=== PATIENT | female | born 1995 | race Caucasian/White ===

== ENCOUNTER 2019-10-18 16:31 | Emergency (ER) | payer BC ==
[~2019-10-18] VITALS: Ht 152.4 cm; Wt 62.7 kg
[2019-10-18 18:55] LABS: COLLECTION METHOD CLEAN CATCH
[2019-10-18 19:05] LABS: BASO % 0.2 % (0.0-2.0); EOS # 0.1 (0.0-0.7); EOS % 0.8 % (0-4.0); GRAN # 7.8 (1.4-6.5); GRAN % 73.1 % (42.2-75.2); HEMATOCRIT 38.2 % (37.0-47.0); HEMOGLOBIN 13.1 g/dl (12.5-16.0); LYMPH # 1.8 (1.2-3.4); LYMPH % 17.1 % (20.0-51.0); MEAN CELL VOLUME 89 fl (80.0-100.0); MEAN CORPUSCULAR HEMOGLOBIN 31 pg (27.0-31.0); MEAN CORPUSCULAR HGB CONC 34 g/dl (33.0-37.0); MEAN PLATELET VOLUME 10.5 fl (7.4-10.4); MONO # 0.9 (0.1-0.6); MONO % 8.2 % (1.7-9.3); PLATELET COUNT 250 K/mm3 (130-400); RED BLOOD COUNT 4.28 M/mm3 (4.10-5.30); REDCELL DISTRIBUTION WIDTH-CV 12.6 % (11.5-14.5)
[2019-10-18 19:08] LABS: MUCOUS Present /lpf; PH 6 (5-8); SQUAMOUS EPITHELIAL 0-2 /hpf; URINE APPEARANCE Clear; URINE BACTERIA None Seen /hpf; URINE BILIRUBIN Negative (NEGATIVE); URINE BLOOD Negative (NEGATIVE); URINE COLOR Straw; URINE GLUCOSE 3+ (NEGATIVE); URINE KETONE Negative (NEGATIVE); URINE LEUKOCYTE ESTERASE 1+ (NEGATIVE); URINE NITRATE Negative (NEGATIVE); URINE PROTEIN(semi-quant) Negative (NEGATIVE); URINE RBC 0-2 /hpf; URINE UROBILINOGEN Negative (NEGATIVE)
--- NOTE | 2019-10-18 19:11 | NUR ---
Pt seen in ED for elevated blood sugar in OB office. [address]wks pt of Dr. Ellison. Pt denies any contractions, leaking of fluid or vaginal bleeding and reports normal movement. EFM and toco monitors started. Audible movement. Occasional contractions noted with toco monitors but pt reports no contractions felt. See charting for details.
[2019-10-18 19:14] LABS: ALANINE AMINOTRANSFERASE < 6 U/L (9-52); ALBUMIN 4.1 gm/dL (3.5-5.0); ALKALINE PHOSPHATASE 92 U/L (50-136); ANION GAP 11 mmol/L (7-16); AST,SGOT 13 U/L (15-37); BILIRUBIN,TOTAL 0.2 mg/dL (0.0-1.0); BLOOD UREA NITROGEN 15 mg/dL (7-17); CALCIUM 9.8 mg/dL (8.4-10.2); CARBON DIOXIDE 23 mmol/L (22-30); CHLORIDE 103 mmol/L (98-107); CREATININE, serum 0.56 (0.52-1.25); GLUCOSE 291 mg/dL (74-106); POTASSIUM 4.1 mmol/L (3.4-5.0); SODIUM 136 mmol/L (137-145); TOTAL PROTEIN 7.8 gm/dL (6.4-8.2)
[2019-10-18 19:21] LABS: ACETONE,SERUM NEGATIVE
[2019-10-18] MEDS ORDERED: GLUCOSE TEST ST1 DEV MC (19:59)
[2019-10-18] MEDS ORDERED: LEVEMIR FLEX100 U/ML SQ (19:59)
[2019-10-18] MEDS ORDERED: LANCETS MC (19:59)
[2019-10-18] MEDS ORDERED: FREESTYLE PREC1 EAC5 MC ×2 (19:59→20:00)
[2019-10-18 20:22] VITALS: BP 104/73; PULSE 88; TEMP 98.7
== END 2019-10-18 20:35 | disposition home or self-care (01) ==
LOC: COL.ER 16:31
PROVIDERS: Emergency Medicine
DX: O24.419 Gestational diabetes mellitus in pregnancy, unspecified control (principal); Z3A.28 28 weeks gestation of pregnancy
CPT/HCPCS: J1815; J7030

== ENCOUNTER → 2019-10-19 | Outpatient (CLI) | payer BC ==
[~2019-10-19] VITALS: Ht 152.4 cm; Wt 62.7 kg
[~2019-10-19] MED LIST: FREESTYLE PREC1 EAC5 MC; GLUCOSE TEST ST1 DEV MC; LANCETS MC; LEVEMIR FLEX100 U/ML SQ
[2019-10-19 21:34] VITALS: TEMP 97.9
[2019-10-19 21:56] VITALS: BP 119/78; PULSE 68
== END ==
LOC: COL.ER 21:27
DX: R73.02 Impaired glucose tolerance (oral) (principal)
CPT/HCPCS: J1815

== ENCOUNTER 2019-11-13 16:45 | Outpatient (CLI) | payer BC, OTHER ==
[~2019-11-13] VITALS: Ht 152.4 cm; Wt 65.3 kg
[~2019-11-13 16:45] MED LIST changes: -NOVLOG SQ; -PERCOCET 325 MG1 TA2 PO
[2019-11-13] MEDS ORDERED: NOVLOG SQ (17:00)
--- NOTE | 2019-11-13 17:14 | NUR ---
1650 PATIENT HERE FOR A NONSTRESS TEST PER DR ROSA. ASSESSMENT COMPLETED. EFM ON FHT 140 BABY ACTIVE. REACTIVE STRIP NOTED. DR NIELSON REVIEWED STRIP AN DORDRS TO DISMISS TO HOME
== END 2019-11-13 17:24 | disposition home or self-care (01) ==
LOC: LDRO 16:45
DX: Z36.83 Encounter for fetal screening for congenital cardiac abnormalities (principal); Z3A.34 34 weeks gestation of pregnancy

== ENCOUNTER → 2019-11-13 | Outpatient (CLI) | payer BC, OTHER ==
[~2019-11-13] MED LIST changes: +NOVLOG SQ; +PERCOCET 325 MG1 TA2 PO
== END ==
LOC: DIA.ED 13:39
DX: O24.419 Gestational diabetes mellitus in pregnancy, unspecified control (principal); Z79.4 Long term (current) use of insulin
CPT/HCPCS: G0108

== ENCOUNTER 2019-12-03 02:04 | Outpatient (CLI) | payer BC ==
[~2019-12-03] VITALS: Ht 152.4 cm; Wt 68.6 kg
[~2019-12-03 02:04] MED LIST changes: +NOVLOG SQ
--- NOTE | 2019-12-03 02:10 | NUR ---
PT HERE WITH SPOUSE. IS CURRENTLY COLLECTING A 24HR UA DUE TO PREECLAMPSIA, IDGDM.G1 35.3 WKS. RYAN HAD SEVERAL EPISODES OF LIGHT APPEARING ALL ORANGE WHEN SHE WOULD AWAKEN.VISION IS NORMAL NOW PT STATES. DENIES PAIN, N/V OR HEADACHE AT THIS TIME. HAS URINTED ONCE- COLLECTED TO ADD TO HER CONTAINER FOR TESTING. SERIAL BPS DONE. ACCUCHECK 98
[2019-12-03 02:21] VITALS: BP 132/77; PULSE 92; TEMP 98.1
[2019-12-03 02:33] VITALS: BP 132/77; PULSE 92; TEMP 98.1
[2019-12-03 02:40] VITALS: BP 110/64; PULSE 84
[2019-12-03 02:50] VITALS: BP 114/67; PULSE 82
--- NOTE | 2019-12-03 03:30 | NUR ---
discharge instr reviewed with pt and spouse . verbalizes understanding- questions addressed
== END 2019-12-03 03:43 | disposition home or self-care (01) ==
LOC: LDRO 02:04
DX: O13.3 Gestational [pregnancy-induced] hypertension without significant proteinuria, third trimester (principal); Z3A.35 35 weeks gestation of pregnancy

== ENCOUNTER 2019-12-04 05:12 | Outpatient (CLI) | payer BC ==
[~2019-12-04] VITALS: Ht 152.4 cm; Wt 147.0 kg
[2019-12-04 05:30] VITALS: BP 130/87; PULSE 88; TEMP 97.6
--- NOTE | 2019-12-04 05:30 | NUR ---
0505- Patient to LR4 by wheelchair with . Patient into restroom to change into clean gown. 0515- Patient helped in to bed with help of x2. 0520- EFM and TOCO on and tracing. Patient has complaints of LLQ pain that she describes as "sharp and shooting" and points to her lower left abdomen. The patient's reports the pain is often in her hip and pelvis on the left side. Patient denies bleeding, spotting, or contractions. Patient has been seen at [facility] and L&D the past 2 days. 0535- See Physician Notification. 0540- See Physician Notification.
--- NOTE | 2019-12-04 06:15 | NUR ---
Report received from Ayesha SPENCE. Patient resting in bed, stating she is still have some pain but not feeling contractions. 0655: SVE attempted and patient does not tolerate well. Unable to perform SVE. 0711: called and notified and discharge orders given. 0719: Patient off monitors and discharge instructions gone over. Patient and spouse verbalize understanding. Questions answered. 0745: Patient off unit via wheelchair with spouse.
[2019-12-04 06:20] LABS: COLLECTION METHOD CLEAN CATCH
[2019-12-04 06:29] LABS: MUCOUS Present /lpf; PH 5 (5-8); URINE APPEARANCE Clear; URINE BACTERIA None Seen /hpf; URINE BILIRUBIN Negative (NEGATIVE); URINE BLOOD Negative (NEGATIVE); URINE COLOR Yellow; URINE GLUCOSE Negative (NEGATIVE); URINE KETONE Negative (NEGATIVE); URINE LEUKOCYTE ESTERASE Negative (NEGATIVE); URINE NITRATE Negative (NEGATIVE); URINE PROTEIN(semi-quant) 2+ (NEGATIVE); URINE RBC 0-2 /hpf; URINE UROBILINOGEN Negative (NEGATIVE); URINE WBC 0-2 /hpf
[2019-12-04 07:20] VITALS: BP 136/93; PULSE 93; TEMP 98.1
== END 2019-12-04 07:45 | disposition home or self-care (01) ==
LOC: LDRO 05:12 → LDR 05:15 → LDRO 07:45
PROVIDERS: Student in an Organized Health Care Education/Training Program
DX: O26.893 Other specified pregnancy related conditions, third trimester (principal); Z3A.35 35 weeks gestation of pregnancy
CPT/HCPCS: OP

== ENCOUNTER 2019-12-10 12:24 | Inpatient (IN) | payer BC ==
[2019-12-10] VITALS (10 sets, daily range): BP systolic 119–141; BP diastolic 64–80; PULSE 74–93; TEMP 98.1
[~2019-12-10] VITALS: Ht 152.4 cm; Wt 66.8 kg
--- NOTE | 2019-12-10 19:10 | NUR ---
G1 at 36 weeks and 2 days arrives to unit for scheduled induction of labor. Pt oriented to room, bed in low and locked position, call light within reach. Clean gown on. US and toco explained and applied. Pt reports feeling good movement, denies contractions, denies LOF and denies vaginal bleeding. Pt reports having a headache earlier today but it went away. Denies changes in vision, or RUQ pain. Does have some mild lower edema swelling. Pt has gestational diabetes and reports blood sugars today have all been below 100 and she last took novolog in the morning with breakfast. Vital signs obtained. Admission assessment started. SVE /-3, membranes intact. Dr. Ellison notified for further orders, see physician notification.
--- NOTE | 2019-12-10 19:52 | NUR ---
20 G IV started in left wrist. Admission labs obtained off IV start.
--- NOTE | 2019-12-10 20:10 | NUR ---
Category 1 FHR tracing obtained. Pt up to bathroom to void. 50 mcg cytotec given PO once back in bed.
[2019-12-10 20:39] LABS: BASO % 0.3 % (0.0-2.0); EOS # 0.1 (0.0-0.7); GRAN % 67.2 % (42.2-75.2); HEMOGLOBIN 11.8 g/dl (12.5-16.0); LYMPH # 2.5 (1.2-3.4); MEAN CELL VOLUME 88 fl (80.0-100.0); MEAN CORPUSCULAR HEMOGLOBIN 30 pg (27.0-31.0); MEAN CORPUSCULAR HGB CONC 34 g/dl (33.0-37.0); MEAN PLATELET VOLUME 11.7 fl (7.4-10.4); MONO # 0.7 (0.1-0.6); MONO % 7.1 % (1.7-9.3); PLATELET COUNT 261 K/mm3 (130-400); RED BLOOD COUNT 3.98 M/mm3 (4.10-5.30); REDCELL DISTRIBUTION WIDTH-CV 12.5 % (11.5-14.5)
[2019-12-10 20:41] LABS: HEMATOCRIT 34.9 % (37.0-47.0)
[2019-12-10 20:43] LABS: ALBUMIN 3.4 gm/dL (3.5-5.0); BILIRUBIN,TOTAL 0.3 mg/dL (0.0-1.0); CALCIUM 9.7 mg/dL (8.4-10.2); CREATININE, serum 0.69 (0.52-1.25); POTASSIUM 3.7 mmol/L (3.4-5.0)
--- NOTE | 2019-12-10 20:50 | NUR ---
Pt checked blood sugar with own glucometer. Blood Sugar 164. Pt to give 10 units of patient supplied levemir per Dr. Ellison, see MAR.
--- NOTE | 2019-12-10 21:00 | NUR ---
Pt complaining of IV site hurting and not infusing well. New IV started in right wrist.
[2019-12-11] VITALS (84 sets, daily range): BP systolic 113–158; BP diastolic 58–92; PULSE 67–125; TEMP 97.3–98.3
--- NOTE | 2019-12-11 04:45 | NUR ---
Pt wanting to get up to shower. Category 1 FHR tracing obtained. Monitors removed, plan of care updated.
--- NOTE | 2019-12-11 05:55 | NUR ---
Category 1 FHR tracing obtained. Pitocin initiated at 2 mL/min per protocol. Pt reports only feeling mild cramping.
--- NOTE | 2019-12-11 07:00 | NUR ---
Assumed care of patient. Ambulates to the bathroom and back. Denies any discomfort or pain at this time. Spouse at bedside.
--- NOTE | 2019-12-11 07:15 | NUR ---
Blood sugar 75
--- NOTE | 2019-12-11 08:15 | NUR ---
Ambulates to the bathroom and back. Denies any pain at this time.
--- NOTE | 2019-12-11 08:30 | NUR ---
Blood sugar 83
--- NOTE | 2019-12-11 09:15 | NUR ---
Request epidural. Anesthesia notified. 09 Anesthesia here, visits with patient. 09 Local given by morgan landonngreer 0938 Straight shot given by anesthesia. 0939 Test dose given by anesthesia.
--- NOTE | 2019-12-11 09:45 | NUR ---
Lies down after epidural. Denies any needs at this time.
--- NOTE | 2019-12-11 10:00 | NUR ---
Blood sugar 98.
--- NOTE | 2019-12-11 10:50 | NUR ---
Blood sugar 79.
--- NOTE | 2019-12-11 11:30 | NUR ---
Rests in bed, alert. Denies any needs at this time.
--- NOTE | 2019-12-11 11:45 | NUR ---
Blood sugar 76.
--- NOTE | 2019-12-11 12:55 | NUR ---
Blood sugar 60
--- NOTE | 2019-12-11 13:00 | NUR ---
Rests in bed, alert. Blood sugar 60, reported by spouse. Dr. Ellison called and updated with blood sugar 60. New orders to given orange juice. and recheck in an hour. [place] juice given.
--- NOTE | 2019-12-11 13:46 | NUR ---
Blood sugar 89
--- NOTE | 2019-12-11 14:07 | NUR ---
Report given from Veronique Mahan RN to this nurse as baby becomes level 2.
--- NOTE | 2019-12-11 14:30 | NUR ---
Rests in bed, alert. Repositioned in bed, curtis-care given.
--- NOTE | 2019-12-11 14:50 | NUR ---
Blood sugar 85.
--- NOTE | 2019-12-11 15:45 | NUR ---
Blood sugar 69, orange juice given.
--- NOTE | 2019-12-11 16:30 | NUR ---
Rests in bed, alert. Repositioned to left side. Lisette-care given.
--- NOTE | 2019-12-11 16:45 | NUR ---
Blood sugar 105.
--- NOTE | 2019-12-11 17:00 | NUR ---
1710 Dr. Ellison here, sve done, reports dilated to eight, 100% effaced, minus one. New orders to change fluids of normal saline to lactated ringers.
--- NOTE | 2019-12-11 17:45 | NUR ---
Spouse came out to desk and reports Oscar is feeling pressure. Dr. Ellison went in and did vag exam. Reports still an eight, but zero station.
--- NOTE | 2019-12-11 21:15 | NUR ---
PT COMPLETE/0-+1, PLACED IN LEFT LATERAL WITH RIGHT LEG IN STIRRUP TO LABOR DOWN.
--- NOTE | 2019-12-11 23:38 | NUR ---
PT BEGINS PUSHING WITH THIS NURSE.
[2019-12-12] VITALS (31 sets, daily range): BP systolic 103–153; BP diastolic 53–91; PULSE 63–151; TEMP 97.9–98.5
--- NOTE | 2019-12-12 02:09 | NUR ---
PT TO SEMIFOWLERS POSITION AT 0200, SQUAT BAR IN PLACE WITH SHEET, PT INSTRUCTED ON HOW TO PUSH USING SQUAT BAR AND SHEET "TUG OF WAR". ATTEMPTING PUSHING THIS WAY FOR 4 CONTRACTIONS BUT PT DIDN'T TOLERATE WELL. SQUAT BAR AND SHEET DC'D. PT CONTINUES PUSHING IN SEMIFOWLERS.
--- NOTE | 2019-12-12 02:56 | NUR ---
0232- DR. ROSA IN ROOM TO EVALUATE AFTER 3 HOURS OF PUSHING. MINIMAL CHANGE IN STATION OF THE LAST [address] ROSA STATES CONCERN OF SIZE AND INSUFFICIENT PELVIS, C/S RECOMMENDED. PT AND SPOUSE VERBALIZED UNDERSTANDING AND AGREE TO C/S 0237- C/S CALLED. NSY, ANESTHESIA, CONTINUING EDUCATION DEAN, AND CHARGE NOTIFIED. 0240- PITOCIN OFF PER DR. ROSA. 0245- MONS PUBIS CLIPPED, SCRUB PERFORMED. 0256- CASTRO EMPTIED, 850MLS OUT. PT OFF MONITORS, TO OR VIA BED FOR C/S FOR ARREST OF DESCENT.
--- NOTE | 2019-12-12 04:45 | NUR ---
BLOOD SUGAR CHECKED IN PACU AT THIS TIME. BS OF 156. DR. ROSA NOTIFIED AT 0450. CHANGE LR WITH PITOCIN TO NS WITH 30MCG OF PITOCIN. CHECK ANOTHER BLOOD SUGAR IN 2 HOURS, NOTIFY IF LESS THAN 60 OR GREATER THAN 150.
--- NOTE | 2019-12-12 04:55 | NUR ---
PT MOVED FROM PACU TO . RECOVERY VS SET ON DYNAMAP, PERICARE PROVIDED, ICEPACK TO PERINEUM FOR SWELLING DUE TO 3 HOURS OF PUSHING. ABDOMINAL BINDER IN PLACE. PT DENIES PAIN AT THIS TIME.
--- NOTE | 2019-12-12 05:55 | NUR ---
0555-O2 INCREASED TO 2L PER NASAL CANULA AT 40% FIO2 PER DR CHAUDHARI ORDER. O2 SATS INCREASED FROM 90% TO 93% AT THIS TIME. MODERATE GRUNTING, NASAL FLARING AND RETRACTIONS CONTINUE.
--- NOTE | 2019-12-12 08:10 | NUR ---
Dr. Melton on unit. Reviewed patient history and assessment, vital signs, and glucose levels. Orders to continue sliding scale orders per Dr. Ellison. Routine care.
--- NOTE | 2019-12-12 11:05 | NUR ---
Patient educated on pumping for in NICU. Patient denies questions at this time, begins pumping.
--- NOTE | 2019-12-12 19:00 | NUR ---
BLOOD SUGAR 1 HOUR POSTPRANDIAL OF 183.
--- NOTE | 2019-12-12 21:45 | NUR ---
BLOOD SUGAR OF 119.
[2019-12-13 01:09] VITALS: BP 119/70; PULSE 65; TEMP 98.7
[2019-12-13 06:50] LABS: BASO % 0.2 % (0.0-2.0); EOS # 0.1 (0.0-0.7); EOS % 0.7 % (0-4.0); GRAN # 11.7 (1.4-6.5); LYMPH # 3.1 (1.2-3.4); LYMPH % 19.4 % (20.0-51.0); MEAN CELL VOLUME 89 fl (80.0-100.0); MEAN CORPUSCULAR HGB CONC 33 g/dl (33.0-37.0); MEAN PLATELET VOLUME 10.8 fl (7.4-10.4); MONO # 1.2 (0.1-0.6); MONO % 7.1 % (1.7-9.3); PLATELET COUNT 211 K/mm3 (130-400); RED BLOOD COUNT 3.24 M/mm3 (4.10-5.30); REDCELL DISTRIBUTION WIDTH-CV 12.8 % (11.5-14.5)
[2019-12-13 06:56] LABS: HEMATOCRIT 28.8 % (37.0-47.0); MEAN CORPUSCULAR HEMOGLOBIN 30 pg (27.0-31.0)
[2019-12-13 06:57] LABS: ALBUMIN 2.6 gm/dL (3.5-5.0); BILIRUBIN,TOTAL 0.2 mg/dL (0.0-1.0); CALCIUM 9.2 mg/dL (8.4-10.2); CREATININE, serum 0.82 (0.52-1.25); HEMOGLOBIN 9.6 g/dl (12.5-16.0); POTASSIUM 3.8 mmol/L (3.4-5.0); TOTAL PROTEIN 5.6 gm/dL (6.4-8.2)
[2019-12-13 07:00] VITALS: BP 138/82; PULSE 80; TEMP 97.2
--- NOTE | 2019-12-13 09:30 | NUR ---
Patient ambulated with shaking gait to bathroom with assist x1. Catheter discontinued per order. Lisette care provided. Ambulated back to bed and assisted into bed. Updated on plan of care and safety. SCD's back on BLE.
[2019-12-13 11:06] VITALS: BP 115/61; PULSE 81; TEMP 97.8
--- NOTE | 2019-12-13 11:06 | NUR ---
Initial visit attempt; Patient resting, Dry Janitor left card of congratulations and information regarding the availability of spiritual care at our hospital.
[2019-12-13 16:30] VITALS: BP 128/76; PULSE 92; TEMP 97.9
[2019-12-13 20:30] VITALS: BP 141/64; PULSE 82; TEMP 98
[2019-12-14] MEDS ORDERED: PERCOCET 325 MG1 TA2 PO (05:30)
[2019-12-14 09:30] VITALS: BP 126/62; PULSE 89; TEMP 97.6
--- NOTE | 2019-12-14 09:40 | NUR ---
1 HOUR PP BLOOD GLUCOSE 118 WITH PATIENT'S OWN GLUCOMETER.
--- NOTE | 2019-12-14 15:00 | NUR ---
Discharge instructions reviewed. Questions answered. Patient to POV via wheelchair. Discharged home.
== END 2019-12-14 15:00 | disposition home or self-care (01) | DRG 788 ==
LOC: OB 12:24 → LDR 18:54 → OB 12-12 07:37
PROVIDERS: ADMIT Obstetrics & Gynecology
PROC: 10D00Z1 Extraction of Products of Conception, Low, Open Approach (ICD-10-PCS; principal; 2019-12-12)
PROC: 10907ZC Drainage of Amniotic Fluid, Therapeutic from Products of Conception, Via Natural or Artificial Opening (ICD-10-PCS; 2019-12-12)
PROC: 3E0P7GC Introduction of Other Therapeutic Substance into Female Reproductive, Via Natural or Artificial Opening (ICD-10-PCS; 2019-12-12)
DX: O14.13 Severe pre-eclampsia, third trimester (principal); O24.425 Gestational diabetes mellitus in childbirth, controlled by oral hypoglycemic drugs; O62.0 Primary inadequate contractions; Z3A.36 36 weeks gestation of pregnancy; Z37.0 Single live birth
CPT/HCPCS: J0171; J0690; J1100; J1815; J1885; J2405; J2590; J3010; J7030; J7120

== ENCOUNTER 2019-12-19 18:23 | Emergency (ER) | payer BC, OTHER ==
[~2019-12-19] VITALS: Ht 152.4 cm; Wt 63.6 kg
[~2019-12-19 18:23] MED LIST changes: +PERCOCET 325 MG1 TA2 PO
[2019-12-19 18:36] VITALS: BP 153/77; TEMP 98.3
[2019-12-19 19:45] LABS: BASO % 0.4 % (0.0-2.0); EOS # 0.2 (0.0-0.7); EOS % 1.9 % (0-4.0); GRAN # 7.2 (1.4-6.5); GRAN % 66.1 % (42.2-75.2); HEMOGLOBIN 10.9 g/dl (12.5-16.0); LYMPH # 2.5 (1.2-3.4); LYMPH % 23.2 % (20.0-51.0); MEAN CELL VOLUME 93 fl (80.0-100.0); MEAN CORPUSCULAR HEMOGLOBIN 29 pg (27.0-31.0); MEAN CORPUSCULAR HGB CONC 32 g/dl (33.0-37.0); MEAN PLATELET VOLUME 9.4 fl (7.4-10.4); MONO # 0.8 (0.1-0.6); PLATELET COUNT 387 K/mm3 (130-400); RED BLOOD COUNT 3.73 M/mm3 (4.10-5.30); REDCELL DISTRIBUTION WIDTH-CV 13.7 % (11.5-14.5)
[2019-12-19 19:47] LABS: HEMATOCRIT 34.6 % (37.0-47.0)
[2019-12-19 19:54] LABS: ALANINE AMINOTRANSFERASE 43 U/L (9-52); ALBUMIN 3.6 gm/dL (3.5-5.0); ALKALINE PHOSPHATASE 217 U/L (50-136); ANION GAP 7 mmol/L (7-16); AST,SGOT 33 U/L (15-37); BILIRUBIN,TOTAL 0.3 mg/dL (0.0-1.0); BLOOD UREA NITROGEN 21 mg/dL (7-17); CALCIUM 9.3 mg/dL (8.4-10.2); CARBON DIOXIDE 26 mmol/L (22-30); CHLORIDE 107 mmol/L (98-107); GLUCOSE 119 mg/dL (74-106); SODIUM 140 mmol/L (137-145); TOTAL PROTEIN 7.2 gm/dL (6.4-8.2)
[2019-12-19 20:06] LABS: TROPONIN-I < 0.012 ng/mL (0.000-0.035)
[2019-12-19 20:36] LABS: COLLECTION METHOD CLEAN CATCH
[2019-12-19 20:43] LABS: PH 7 (5-8); SQUAMOUS EPITHELIAL 0-2 /hpf; URINE APPEARANCE Hazy; URINE BACTERIA Rare /hpf; URINE BILIRUBIN Negative (NEGATIVE); URINE BLOOD 3+ (NEGATIVE); URINE COLOR Yellow; URINE GLUCOSE Negative (NEGATIVE); URINE KETONE Negative (NEGATIVE); URINE LEUKOCYTE ESTERASE Trace (NEGATIVE); URINE NITRATE Negative (NEGATIVE); URINE PROTEIN(semi-quant) 1+ (NEGATIVE); URINE RBC >50 /hpf; URINE UROBILINOGEN Negative (NEGATIVE)
[2019-12-19 22:50] VITALS: PULSE 82
== END 2019-12-19 22:55 | disposition home or self-care (01) ==
LOC: COL.ER 18:23
PROVIDERS: Physician Assistant
DX: R06.2 Wheezing (principal)
CPT/HCPCS: Q9967

== ENCOUNTER → 2020-04-07 | Outpatient (CLI) | payer BC | LOC: ZCOL.LAB 10:17 | DX: Z20.828 Contact with and (suspected) exposure to other viral communicable diseases (principal) ==

== ENCOUNTER → 2020-08-19 | Outpatient (CLI) | payer BC | LOC: ZCOL.LAB 12:16 → COL.LAB 12:25 | DX: Z20.828 Contact with and (suspected) exposure to other viral communicable diseases (principal) ==

== ENCOUNTER → 2021-04-15 | Outpatient (CLI) | payer BC | LOC: COL.RAD 07:26 | DX: R10.11 Right upper quadrant pain (principal) ==

== ENCOUNTER 2022-08-25 12:22 | Inpatient (IN) | payer BC, OTHER ==
[~2022-08-25] VITALS: Ht 152.5 cm; Wt 63.6 kg
[2022-08-26] VITALS (18 sets, daily range): BP systolic 97–135; BP diastolic 56–90; PULSE 57–133; TEMP 97.9–98.6
[2022-08-26] MEDS ORDERED: PRENATAL 19 CH1 EACH PO (06:27)
[2022-08-26 06:36] LABS: BASO % 0.3 % (0.0-2.0); EOS # 0.2 K/mm3 (0.0-0.7); EOS % 2.1 % (0.0-4.0); GRAN # 8.1 K/mm3 (1.4-6.5); GRAN % 70.2 % (42.2-75.2); LYMPH % 17.6 % (20.0-51.0); MEAN CELL VOLUME 90 fl (80.0-100.0); MEAN CORPUSCULAR HEMOGLOBIN 29 pg (27-31); MEAN CORPUSCULAR HGB CONC 33 g/dl (33.0-37.0); MEAN PLATELET VOLUME 11.3 fl (7.4-10.4); MONO % 8.8 % (1.7-9.3); PLATELET COUNT 229 K/mm3 (130-400); RED BLOOD COUNT 4.08 M/mm3 (4.10-5.30); REDCELL DISTRIBUTION WIDTH-CV 12.3 % (11.5-14.5)
[2022-08-26 06:38] LABS: HEMATOCRIT 36.5 % (37.0-47.0)
--- NOTE | 2022-08-26 10:11 | NUR ---
Initial visit attempt; Patient had just given and was not in her room. Flatwork Finisher left card of congratulations for the of her son and God's blessings to him and all of his family.
--- NOTE | 2022-08-26 20:30 | NUR ---
2000 - PT BLOOD SUGAR FOUND TO BE 217 PRIOR TO EATING DINNER. 2009 - SPOKE WITH MD LASHONDA (SEE PHYSICIAN NOTIFICATION) 2029 - PT TOOK HER OWN 8UNITS OF NOVOLOG AT THIS TIME PER MD LASHONDA ORDER.
[2022-08-27 00:30] VITALS: BP 120/72; PULSE 84; TEMP 98.1
[2022-08-27 07:30] VITALS: BP 137/74; PULSE 92; TEMP 97.8
--- NOTE | 2022-08-27 09:02 | NUR ---
0720 IBUPROFEN AND STOOL SOFTENER CRUSHED AND GIVEN TO PATIENT WITH CUP OF APPLESAUCE. PT TOLERATED PO INTAKE WELL. 0730 PT REPORTS BLOOD SUGAR ON PT MONITOR WAS 69. DR. GREENE NOTIFIED. PT ORDERED BREAKFAST AT THIS TIME. 0800 DR. GREENE ORDERS TO CONTINUE 2 HOUR POSTPRANDIAL CHECKS, TO NOTIFY HER IF OVER 200.
--- NOTE | 2022-08-27 12:07 | NUR ---
1132 DR. GREENE CALLS FOR UPDATE ON 2 HR PP. PT REPORTS HASN'T BEEN 2 HOURS YET TO RECHECK. 1153 2 HR PP BLOOD SUGAR 117. 1157 DR. GREENE NOTIFIED. ORDERS TO CONTINUE 8 UNITS OF NPH AT 2100. CALL FOR BLOOD SUGARS OVER 140.
--- NOTE | 2022-08-27 16:30 | NUR ---
PT SHOWERED AND REMOVED BANDAGE WITH ASSISTANCE FROM RN. INCISION WELL APPROXIMATED WITH NO DRANIAGE NOTED. PT AMBULATED TO BED WITH ASSISTANCE BY RN. PT RESTING IN BED AND STABLE AT THIS TIME.
[2022-08-27 16:47] VITALS: BP 132/65; PULSE 88; TEMP 98
[2022-08-28 00:15] VITALS: BP 125/67; PULSE 83; TEMP 98.1
[2022-08-28 08:55] VITALS: BP 114/64; PULSE 87; TEMP 97.1
[2022-08-28] MEDS ORDERED: IBU800 M1 PO (11:20)
[2022-08-28] MEDS ORDERED: PERCOCET 325 MG1 TA2 PO (11:20)
--- NOTE | 2022-08-28 12:37 | NUR ---
Hot Mill Operator rounds: Patient and family were preparing to leave the hospital. Accepted a baby blessing. Hot Mill Operator provided a blessing for Baby Faye.
--- NOTE | 2022-08-28 12:59 | NUR ---
DISCHARGE INSTRUCTIONS EXPLAINED TO PT BY RN. PT VERBALIZED UNDERSTANDING. PT DISCHARGE HOME IN STABLE CONDITION ACCOMPANIED BY SPOUSE AND TECH. PT LEFT UNIT WITH NO COMPLAINTS.
== END 2022-08-28 12:53 | disposition home or self-care (01) | DRG 788 ==
LOC: OB 12:22
PROVIDERS: ADMIT Student in an Organized Health Care Education/Training Program
PROC: 10D00Z1 Extraction of Products of Conception, Low, Open Approach (ICD-10-PCS; principal; 2022-08-26)
DX: O34.211 Maternal care for low transverse scar from previous cesarean delivery (principal); Z3A.37 37 weeks gestation of pregnancy; Z37.0 Single live birth; O14.04 Mild to moderate pre-eclampsia, complicating childbirth; O24.424 Gestational diabetes mellitus in childbirth, insulin controlled; O69.81X0 Labor and delivery complicated by cord around neck, without compression, not applicable or unspecified; O99.62 Diseases of the digestive system complicating childbirth; K66.0 Peritoneal adhesions (postprocedural) (postinfection); Z23 Encounter for immunization
CPT/HCPCS: J0690; J1100; J1815; J1885; J2405; J2590; J2765; J7030

== ENCOUNTER 2023-10-16 15:11 | Emergency (ER) | payer SELFPAY ==
[~2023-10-16] VITALS: Ht 152.4 cm; Wt 52.3 kg
[~2023-10-16 15:11] MED LIST changes: +IBU800 M1 PO; +PRENATAL 19 CH1 EACH PO
[2023-10-16 15:20] VITALS: TEMP 98
[2023-10-16 15:41] LABS: COLLECTION METHOD CLEAN CATCH
[2023-10-16 15:50] LABS: PH 5.5 (5.0-8.5); URINE APPEARANCE Clear (CLEAR/HAZY); URINE BLOOD Negative (NEGATIVE); URINE COLOR Straw (YELLOW); URINE GLUCOSE Negative (NEGATIVE); URINE KETONE Negative (NEGATIVE); URINE NITRATE Negative (NEGATIVE); URINE PROTEIN(semi-quant) Negative (NEGATIVE); URINE UROBILINOGEN 0.2 E.U/dL (0.2-1.0)
[2023-10-16 16:02] LABS: URINE BACTERIA None Seen /hpf (NONE SEEN); URINE RBC 0-2 /hpf (0-2)
[2023-10-16 16:18] LABS: BASO % 0.3 % (0.0-2.0); EOS # 0.1 K/mm3 (0.0-0.7); EOS % 1.1 % (0.0-4.0); GRAN # 9.1 K/mm3 (1.4-6.5); GRAN % 76.8 % (42.2-75.2); HEMATOCRIT 45.3 % (37.0-47.0); HEMOGLOBIN 15.2 g/dl (12.5-16.0); LYMPH # 1.9 K/mm3 (1.2-3.4); LYMPH % 16.2 % (20.0-51.0); MEAN CELL VOLUME 86 fl (80.0-100.0); MEAN CORPUSCULAR HEMOGLOBIN 29 pg (27-31); MEAN CORPUSCULAR HGB CONC 34 g/dl (33.0-37.0); MEAN PLATELET VOLUME 10.1 fl (7.4-10.4); MONO # 0.6 K/mm3 (0.1-0.6); MONO % 5.3 % (1.7-9.3); PLATELET COUNT 265 K/mm3 (130-400); RED BLOOD COUNT 5.25 M/mm3 (4.10-5.30); REDCELL DISTRIBUTION WIDTH-CV 12.9 % (11.5-14.5)
[2023-10-16 16:38] LABS: ALBUMIN 4.5 gm/dL (3.5-5.0); BILIRUBIN,TOTAL 0.5 mg/dL (0.2-1.2); CALCIUM 10.3 mg/dL (8.4-10.2); CREATININE, serum 0.79 mg/dL (0.57-1.11); POTASSIUM 3.6 mmol/L (3.5-4.5); TOTAL PROTEIN 8.1 gm/dL (6.2-8.1)
[2023-10-16 18:16] VITALS: BP 128/78; PULSE 88
== END 2023-10-16 18:20 | disposition home or self-care (01) ==
LOC: COL.ER 15:11
PROVIDERS: Nurse Practitioner Family
DX: K59.00 Constipation, unspecified (principal); E11.9 Type 2 diabetes mellitus without complications

== ENCOUNTER → 2023-10-31 | Outpatient (CLI) | payer OTHER | LOC: COL.RAD 05:40 | DX: R10.11 Right upper quadrant pain (principal); R14.2 Eructation; R12 Heartburn | CPT/HCPCS: A9537-JZ; J2805 ==